=== PATIENT | male | born 1980 | race Caucasian/White ===

== ENCOUNTER 2017-06-30 13:43 | Emergency (ER) | payer BC ==
[~2017-06-30] VITALS: Ht 188 cm; Wt 62.6 kg
--- NOTE | ~2017-06-30 | EKG ---
[place] [address] [facility] [place] [address] ELECTROCARDIOGRAM REPORT Name: MIHAI PATEL [facility] [id number] Admission: 06/30/17 Attend Phys: Discharge: Date of : 76 Report #: [id number] THIS REPORT FOR: //name// [facility] ED Test Date: 2017-06-30 Test Time: 14:03:35 Pat Name: MIHAI PATEL Department: Room: Gender: Social Studies Teacher: JUSTIN : 1980 Requested By: Gasper Nogueira Order Number: [id number] MD: Darius Wills Measurements Intervals [place] Rate: 87 P: 69 [place]: 115 QRS: 80 QRSD: 95 T: 58 QT: 366 QTc: 441 Interpretive Statements Sinus rhythm Borderline short [place] interval No previous ECG available for comparison Electronically Signed On 06-30-2017 16:13:20 CDT by Darius Wills [email or web address] <ELECTRONICALLY SIGNED> By: Darius Wills MD 06/30/17 1613 1403 1403 Darius Wills MD /ROQUE
[2017-06-30 14:22] LABS: HEMATOCRIT 37.1 % (42.0-52.0); HEMOGLOBIN 12.2 gm/dL (14.0-18.0); MCH 28.9 pg (26.0-34.0); MCHC 32.9 g/dL (28.0-37.0); MCV 87.8 fL (80.0-100.0); PLATELET COUNT 353 thou/uL (150-400); RBC 4.23 mil/uL (4.50-6.00); RDW 13.9 % (10.5-14.5); WBC 14.6 thou/uL (4.0-11.0)
[2017-06-30 14:33] LABS: ANION GAP 7 mmol/L (7-16); BUN 13 mg/dL (7-18); CALCIUM 8.9 mg/dL (8.5-10.1); CHLORIDE 102 mmol/L (98-107); CO2 26 mmol/L (21-32); CREATININE 0.5 mg/dL (0.7-1.3); GLUCOSE 112 mg/dL (74-106); POTASSIUM 3.8 mmol/L (3.5-5.1); SODIUM 135 mmol/L (136-145)
[2017-06-30 14:41] LABS: SGOT 17 U/L (15-37); SGPT 23 U/L (30-65); TOTAL BILIRUBIN 0.3 mg/dL (<0.1-1.0); TROPONIN-I < 0.04 ng/mL (<0.06)
[2017-06-30 14:44] LABS: INR 1.1; PROTIME 11.4 Seconds (9.3-11.4)
[2017-06-30 14:47] LABS: BE(vivo) 0.7 mmol/L (-2 to +3); HCO3 23.2 mmol/L (22.0-26.0); PCO2 31.1 mmHg (35.0-45.0); PO2 68.4 mmHg (80.0-100.0); pH 7.491 (7.360-7.450); sO2 95.2 % (92.0-98.0)
[2017-06-30 14:47] LABS: ABSOLUTE NEUTROPHILS 12.7 thou/uL (1.4-8.2); LARGE PLATELETS MANY
[2017-06-30 15:49] VITALS: BP 138/75
== END 2017-06-30 18:12 | disposition short-term general hospital (02) ==
LOC: ER 13:43
PROVIDERS: Physician Assistant
DX: J18.9 Pneumonia, unspecified organism (principal); J96.20 Acute and chronic respiratory failure, unspecified whether with hypoxia or hypercapnia; G35 Multiple sclerosis; A41.9 Sepsis, unspecified organism; J98.09 Other diseases of bronchus, not elsewhere classified; Z93.0 Tracheostomy status